=== PATIENT | male | born 2000 | race Asian ===

== ENCOUNTER 2018-10-25 16:40 | Emergency (ER) | payer OTHER ==
[2018-10-25] MEDS ORDERED: LORazepam TAB(*) 1 MG PO ONE ×2 (17:22→18:16)
--- NOTE | 2018-10-25 17:28 | ED ---
Complex/Multi-Sys Presentation - HPI Summary HPI Summary: Patient is a 18 year old M [facility] [place] [place] two male friends with a chief complaint of insomnia since 10/23/18 night. Symptoms aggravated by nothing. Symptoms alleviated by nothing. Patient reports palpitations, nausea, fatigue, and lightheadedness. Patient takes Adderall. Patient reports taking it at 00:00 on 10/23/18, again at 12:00 10/24/18, and again at 12:30 today, 10/25/18. Patient hasn't been able to sleep or eat since 10/23/18. He describes that he "feels like a vegetable", his "brain is fried," and he is having trouble standing. - History Of Current Complaint Chief Complaint: EDDizziness Time Seen by Provider: 10/25/18 17:14 Hx Obtained From: Patient Onset/Duration: Gradual Onset, Lasting Days - 3, Still Present Timing: Constant, Days - 3 Severity Currently: None Aggravating Factor(s): nothing Alleviating Factor(s): nothing Associated Signs And Symptoms: Positive: Palpitations, Nausea, Other - lightheadedness, fatigue - Allergies/Home Medications Allergies/Adverse Reactions: Allergies Allergy/AdvReac Type Severity Reaction Status Date / Time beef derived (bovine) Allergy Mild Itching Verified 10/25/18 17:31 shrimp Allergy Mild Itching Verified 10/25/18 17:31 Home Medications: Home Medications Albuterol HFA INHALER* [Ventolin HFA Inhaler*] 1 puff INH Q4H PRN 10/25/18 [ History Confirmed 10/25/18] Loratadine [Claritin] 10 mg PO DAILY 10/25/18 [History Confirmed 10/25/18] PMH/Surg Hx/FS Hx/Imm Hx Previously Healthy: No - hx: seasonal allergies Endocrine/Hematology History: Denies: Hx Diabetes Cardiovascular History: Denies: Hx Hypertension, Hx Pacemaker/ICD Respiratory History: Reports: Hx Asthma History: Denies: Hx Renal Disease Sensory History: Denies: Hx Hearing Aid Psychiatric History: Denies: Hx Panic Disorder - Surgical History Surgery Procedure, Year, and Place: none Infectious Disease History: Yes Infectious Disease History: Denies: Traveled Outside the [place] in Last 30 Days - Family History Known Family History: Negative: Cardiac Disease, Diabetes - Social History Alcohol Use: Weekly Hx Substance Use: Yes Substance Use Type: Reports: Marijuana Hx Tobacco Use: No Smoking Status (MU): Never Smoked Tobacco Review of Systems Positive: Fatigue Positive: Palpitations Positive: Nausea Neurological: Other - lightheadedness Positive: Other - insomnia All Other Systems Reviewed And Are Negative: Yes Physical Exam - Summary Physical Exam Summary: Appearance: The patient is well-nourished in no acute distress and in no acute pain. Skin: The skin is warm and dry and skin color reflects adequate perfusion. HEENT: The head is normocephalic and atraumatic. The pupils are equal and reactive. The conjunctivae are clear and without drainage. Nares are patent and without drainage. Mouth reveals moist mucous membranes and the throat is without erythema and exudate. The external ears are intact. The ear canals are patent and without drainage. The tympanic membranes are intact. Neck: The neck is supple with full range of motion and non-tender. There are no carotid bruits. There is no neck vein distension. Respiratory: Chest is non-tender. Lungs are clear to auscultation and breath sounds are symmetrical and equal. Cardiovascular: Heart is regular rate and rhythm. There is no murmur or rub auscultated. There is no peripheral edema and pulses are symmetrical and equal. Abdomen: The abdomen is soft and non-tender. There are normal bowel sounds heard in all four quadrants and there is no organomegaly palpated. Musculoskeletal: There is no back tenderness noted. Extremities are non-tender with full range of motion. There is good capillary refill. There is no peripheral edema or calf tenderness elicited. Neurological: Patient is alert and oriented to person, place and time. The patient has symmetrical motor strength in all four extremities. Cranial nerves are grossly intact. Deep tendon reflexes are symmetrical and equal in all four extremities. Psychiatric: The patient has an appropriate affect and does not exhibit any anxiety or depression. Triage Information Reviewed: Yes Vital Signs On Initial Exam: Initial Vitals Temp Pulse Resp BP Pulse Ox 97 F 127 18 147/96 100 10/25/18 16:43 10/25/18 16:43 10/25/18 16:43 10/25/18 16:43 10/25/18 16:43 Vital Signs Reviewed: Yes Diagnostics - Vital Signs Vital Signs Temp Pulse Resp BP Pulse Ox 10/25/18 16:43 97 F 127 18 147/96 100 - Laboratory Lab Statement: Any lab studies that have been ordered have been reviewed, and results considered in the medical decision making process. Re-Evaluation - Re-Evaluation First Eval Re-Evaluation Time: 18:19 Change: Improved Comment: Patient feels better after taking Ativan 1 mg and would like to go home. Discussed discharge plan. Jazminnet is agreeable. Complex Multi-Symp Course/Dx Course Of Treatment: Mr. Richards felt a little bit better after a milligram of Ativan here in the emergency department. He was still not able to sleep. He tolerated the Ativan well and I recommended that he go home and have a good meal and take a second Ativan and I expect available to sleep. - Diagnoses Provider Diagnoses: Stimulant abuse Discharge - Sign-Out/Discharge Documenting (check all that apply): Patient Departure - discharge Patient Received Moderate/Deep Sedation with Procedure: No - Discharge Plan Condition: Stable Disposition: HOME Patient Education Materials: Insomnia (ED), Fatigue (ED) Forms: *School Release Referrals: [facility] - Guido YODER [[employer], APPLICATION, OTHER] - 3 Days Additional Instructions: Follow up with [facility] in 2-3 days. Return to the emergency department for any new or worsening symptoms. - Billing Disposition and Condition Condition: STABLE Disposition: Home - Attestation Statements Document Initiated by Scribe: Yes Documenting Scribe: Gabriella Calderón Provider For Whom Matt is Documenting (Include Credential): Manuel Reyes MD Scribe Attestation: Chris Atkins Tiffany Liu, scribed for Manuel Reyes MD on 10/26/18 at 0728. Scribe Documentation Reviewed: Yes Provider Attestation: The documentation as recorded by the scribe, Gabriella Calderón accurately reflects the service I personally performed and the decisions made by me, Manuel Reyes MD Status of Scribe Document: Viewed
[2018-10-25 18:24] VITALS: BP 132/86
== END 2018-10-25 18:23 | disposition home or self-care (01) ==
LOC: ED 16:40
DX: F15.10 Other stimulant abuse, uncomplicated (principal); J45.909 Unspecified asthma, uncomplicated
CPT/HCPCS: 93005; 99282; A9270-GY